=== PATIENT | female | born 1975 | race Caucasian/White ===

== ENCOUNTER 2016-07-12 16:47 | Emergency (ER) | payer OTHER ==
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
== END 2016-07-12 18:10 | disposition home or self-care (01) ==
LOC: ER 16:47
DX: S16.1XXA Strain of muscle, fascia and tendon at neck level, initial encounter (principal); V43.52XA Car driver injured in collision with other type car in traffic accident, initial encounter

== ENCOUNTER 2017-01-28 06:59 | Emergency (ER) | payer OTHER ==
--- NOTE | ~2017-01-28 | ER ---
ADMIT: 01/28/2017 RM/LOC: ER [facility] MR#: [id number] ACC#: [id number] [address] [address] DRISS VASQUEZ [address] [place] [address] Emergency Room Report SEX: F AGE: 41 : 1975 DATE: 01/28/2017 TIME: 0659 hours. Please refer to my T-sheet for complete H and P. HISTORY OF PRESENT ILLNESS: Briefly, patient is a 41-year-old who got up this morning. She gets up around 3 or 4 in the morning. She had no issues. About 6:20 she started feeling headache. She does have a history of migraines. She said then she noticed her left arm was numb. She has migraines about one a month, but this one is not the worst ever, just kind of mild diffuse headache, but she was worried because her left arm felt tingly and numb. Did not sit funny, nothing unusual. Denies any trauma. No fevers or chills. PHYSICAL EXAMINATION: VITAL SIGNS: Blood pressure 126/87, pulse 96, respirations 16, temperature 99.1, saturation 100%. GENERAL: No acute distress. HEENT: Essentially unremarkable. No neck pain. HEART: Regular. No murmur. I hear no bruit. ABDOMEN: Soft. SKIN: No rash. NEUROLOGIC: Alert and oriented. No focal findings. She says she has this diffuse paresthesias of her hand, but it does not localize to dermatome, it is just kind of diffusely all over up into her arm. EMERGENCY DEPARTMENT COURSE: CT of her brain was negative by the radiologist. CBC is normal. Chemistries normal. UA normal. I gave her a liter of normal saline bolus, 10 of Toradol IV, Reglan 10 IV. Her symptoms were all resolved. She was home fine. I had a long discussion with her. She is okay with going home. I talked to her about taking an 81 mg of aspirin a day. We gave her ADMIT: 01/28/2017 RM/LOC: [facility] MR#: [id number] [address] [address] DRISS VASQUEZ [address] [place] [address] Emergency Room Report SEX: F AGE: 41 : 1975 first dose here. She is ready for discharge. ASSESSMENT: 1. Left arm paresthesias, resolved. 2. Headache. The etiology of this is confounding. She looked very stable, really no focal neurological findings, it may have been an atypical migraine versus just a little bit of paresthesia from how she had slept and been at work. PLAN: We are going to put her on 81 mg aspirin a day. I want her to follow up with Dr. Horn this week and return if worse or problems. Gama Crowe MD/ bradford JOB #: [id number] CC: Gama Crowe MD, Attending Physician Tita Horn MD, Family Physician
== END 2017-01-28 09:10 | disposition home or self-care (01) ==
LOC: ER 06:59
DX: R51 Headache (principal); R20.2 Paresthesia of skin; Z88.5 Allergy status to narcotic agent; Z79.899 Other long term (current) drug therapy; Z90.49 Acquired absence of other specified parts of digestive tract